=== PATIENT | female | born 1975 | race Caucasian/White ===

== ENCOUNTER → 2019-03-19 13:07 | Outpatient (CLI) | payer BC, SELFPAY ==
[2019-03-27 15:22] LABS: HPV Reflexed? NOT INDICATED
== END ==
PROVIDERS: PCP Family Medicine; Visit Provider Obstetrics & Gynecology
DX: Z12.4 Encounter for screening for malignant neoplasm of cervix (principal)
CPT/HCPCS: 88175; G0145

== ENCOUNTER → 2019-04-07 07:17 | Outpatient (CLI) | payer BC, SELFPAY ==
--- NOTE | 2019-04-07 07:26 | BI_ITS ---
MAMMOGRAPHY - BILATERAL SCREENING REASON FOR EXAM: Female, 44 years old. Routine annual screening examination. PERTINENT HISTORY: Non-contributory. History of bilateral breast implants. TECHNIQUE: Digital bilateral breast brent (3D mammographic acquisition) in the CC and MLO projections. 2-D mediolateral oblique (MLO) and craniocaudad (CC) views of both breasts were obtained. CAD: Full Field Digital Mammography with Computer Added Detection was performed. COMPARISON: Comparison is made with prior study dated September 30, 2017 and June 04, 2012. FINDINGS: Breast Composition: The breasts are heterogeneously dense, which may obscure small masses. There are no dominant masses or suspicious calcifications. Stable appearance of the bilateral breast implants. No other significant abnormalities are identified. There has been no significant change since the prior study. BI/SCREEN MAMM (CAD) W/BRENT BILAT IMPRESSION: Stable bilateral screening mammogram. Yearly follow-up mammogram recommended. (A) ASSESSMENT CATEGORY: BIRADS Category 2: Benign. A letter regarding these results will be sent to the patient by the facility within 30 days. Approximately 10% of breast cancers are not detected by mammography. A normal mammogram should not delay biopsy of a clinically suspicious abnormality. [id number] Electronically Signed: Naren Marinelli, at 9:24 EDT , Service support ,
== END ==
PROVIDERS: Family Provider Family Medicine; PCP Family Medicine; Referring Provider Obstetrics & Gynecology; Visit Provider Obstetrics & Gynecology
DX: Z12.31 Encounter for screening mammogram for malignant neoplasm of breast (principal)
CPT/HCPCS: 77063; 77067

== ENCOUNTER → 2020-03-16 07:51 | Outpatient (CLI) | payer BC, SELFPAY ==
[2020-03-16 10:23] LABS: Homocysteine 6.7 umol/L (3.2-10.7)
[2020-03-16 10:27] LABS: Absolute Lymphocyte Count 2.56 X10^3/uL (0.83-4.51); Absolute Neutrophil Count 5.1 X10^3/uL (2.0-7.7); Basophil# 0.03 X10^3/uL; Basophil% 0.4 % (0-1); Eosinophil# 0.18 X10^3/uL; Eosinophils% 2.1 % (0-5); Hematocrit 46.5 % (37-47); Hemoglobin 14.9 g/dL (12.0-15.0); Lymphocyte # 2.56 X10^3/ul (4.0); Lymphocyte % 30.2 % (19-41); Mean Corpuscular Hgb 31.3 pg (27.0-32.0); Mean Corpuscular Volume 97.7 fL (81-99); Mean Platelet Vol. 9.6 fl (6.2-12.0); Monocyte# 0.58 X10^3/uL; Monocyte% 6.8 % (0-10); NRBC Flagged by Analyzer 0 % (0-5); Neutrophil # 5.09 X10^3/uL (2.7-7.7); Neutrophil % 60.1 % (47-70); Platelet Count 191 K/mm3 (150-450); RBC Distribution Width CV 13.2 % (11.6-14.6); RBC Distribution Width SD 47.2 fl (35.1-43.9); Red Blood Count 4.76 M/mm3 (4.2-5.4); White Blood Count 8.5 K/mm3 (4.4-11.0)
[2020-03-16 10:41] LABS: Vitamin B12 319 pg/mL (211-911); Vitamin D,25 Hydroxy 68.6 ng/mL
[2020-03-16 11:00] LABS: Cholesterol 178 mg/dL (200); Ferritin 27 ng/mL (8-252); High Density Lipoprotein 68 mg/dL; Triglycerides 110 mg/dL; Very Low Density Lipoprotein 22 mg/dL (5-40)
== END ==
PROVIDERS: PCP Family Medicine; Referring Provider Family Medicine; Visit Provider Family Medicine
DX: E72.12 Methylenetetrahydrofolate reductase deficiency (principal); M25.50 Pain in unspecified joint; Z13.220 Encounter for screening for lipoid disorders
CPT/HCPCS: 36415; 80061; 82306; 82607; 82728; 82746; 83090; 85025

== ENCOUNTER 2020-10-28 09:11 | Outpatient (RCR) | payer BC, SELFPAY | END 2020-10-28 23:59 | LOC: IMMUN 09:11 | PROVIDERS: PCP Family Medicine; Referring Provider Family Medicine; Visit Provider Family Medicine | DX: Z23 Encounter for immunization (principal) | CPT/HCPCS: 0011A; 0012A ==

== ENCOUNTER → 2022-05-16 | Outpatient (CLI) | payer BC, SELFPAY ==
--- NOTE | 2022-05-16 14:42 | BI_ITS ---
MAMMOGRAPHY - BILATERAL DIAGNOSTIC REASON FOR EXAM: Female, 47 years old. Abnormal thermogram of the upper outer quadrant of the right breast. PERTINENT HISTORY: Non-contributory. Bilateral breast implants. TECHNIQUE: Digital bilateral breast sharon (3D mammographic acquisition) in the CC and MLO projections. 2-D mediolateral oblique (MLO) and craniocaudad (CC) views of both breasts were obtained. CAD: Full Field Digital Mammography with Computer Added Detection was performed. COMPARISON: Comparison is made with prior study dated 04/07/2019 and 09/30/2017. FINDINGS: Breast Composition: The breasts are heterogeneously dense, which may obscure small masses. There are no dominant masses or suspicious calcifications. Stable appearance of the bilateral breast implants. No other significant abnormalities are identified. There has been no significant change since the prior study. BI/DIAG MAMM W/CAD, BILAT IMPRESSION: Stable bilateral diagnostic mammogram. With the patient''s history of abnormal thermogram of the upper outer quadrant of the right breast, correlation with ultrasound is recommended. ASSESSMENT CATEGORY: BIRADS Category 0: Incomplete. Need additional imaging evaluation. A letter regarding these results will be sent to the patient by the facility within 30 days. Approximately 10% of breast cancers are not detected by mammography. A normal mammogram should not delay biopsy of a clinically suspicious abnormality. Electronically Signed: Naren Marinelli MD at 15:36 EDT ,
--- NOTE | 2022-05-16 15:06 | US_ITS ---
STUDY: ULTRASOUND BREAST - RIGHT REASON FOR EXAM: Female, 47 years old. Abnormal thermogram. TECHNIQUE: Axial and longitudinal images of the RIGHT breast were performed with a high resolution ultrasound transducer. # OF IMAGES: 29 COMPARISON: Comparison is made with prior mammogram done earlier today. FINDINGS: RIGHT Breast: The upper outer quadrant of the right breast was examined by ultrasound. No sonographic abnormality is seen. US/Breast Limited Unilateral IMPRESSION: No sonographic abnormality is seen. ASSESSMENT CATEGORY: BIRADS Category 1: Negative. A letter regarding these results will be sent to the patient by the facility within 30 days. Electronically Signed: Naren Marinelli MD at 15:37 EDT ,
== END | disposition home or self-care (01) ==
LOC: OPBI 14:29
PROVIDERS: PCP Family Medicine; Referring Provider Family Medicine; Visit Provider Family Medicine
DX: R92.8 Other abnormal and inconclusive findings on diagnostic imaging of breast (principal)
CPT/HCPCS: 76642; 77062; 77066; G0279

== ENCOUNTER → 2022-07-11 | Outpatient (CLI) | payer BC, SELFPAY ==
[2022-07-20 15:37] LABS: HPV APTIMA, High Risk Negative (Negative)
== END | disposition home or self-care (01) ==
LOC: LABSPEC 11:49
PROVIDERS: PCP Family Medicine; Visit Provider Obstetrics & Gynecology
DX: Z01.419 Encounter for gynecological examination (general) (routine) without abnormal findings (principal)
CPT/HCPCS: 87624; 88175; G0145

== ENCOUNTER 2023-11-05 09:30 | Outpatient (RCR) | payer BC, SELFPAY ==
--- NOTE | 2023-10-31 11:37 | HP.PTEVAL_ITS ---
Patient's Visit Information Visit Information Visit Information: ISACC GREEN is a 48 year old F referred to Physical Therapy by Dr. Edwin Aguilar MD with a diagnosis of CERVICALGIA, KEV NECK M. TENDERNESS AND POSTURE IMBALANCE. Date of Evaluation: 10/31/23 Physical Therapist: Erna Wong PT, Cert MDT Visit Plan Frequency: 2-3x /Week Duration: 4 Weeks Plan: Scapular Strengthening and B Pec/UT/Levator/Scalene Stretching to help reduce stress on Cervical Spine with Daily Activities. US at 1.3 W/CM2 100% to R Neck Musculature in Sitting. Moist Heat to Neck as needed. STM/Trigger Point Release to Kev Neck Musculature. Instruction in Proper Posture Control, Ergonomics with ADL's and Appropriate Activity Modifications. HEP Instructions. Consider Dry Needling. Subjective Subjective: Work/Leisure: UNEMPLOYEED Disability: NO Present symptoms: R NECK, SHOULDER AND SHLD BLADE PAIN AND TIGHTNESS. PAIN DOWN UPPER ARM TO ELBOW. NO SX'S IN FOREARM. CONSTANT NUMBNESS AND TINGLING IN THUMB, FIRST FINGER AND LITTLE FINGER. NO L NECK OR UE SX'S. Present since: APPROX 10/03/23 OR SOONER WORSENING OF CHRONIC NECK PAIN. NEW ONSET OF ARM SX'S IN THE LAST FEW WKS. Pain Scale: Worst - 5/10 Least - 1/10 Currently: 4/10 Commenced as a result of: NO APPARENT RASON. Symptoms at onset: R SHLD BLADE PAIN. Worse: LYING DOWN, SITTING, CARRYING HEAVING THINGS IN R ARM, TRYING TO LAY ON THE FLOOR ON HER BACK. Better: ON THE MOVE, BENDING BODY FORWARD AND DROPPING HEAD, SCRUNCHING UP ON COUCH WITH BODY AND NECK BENT, TENS WITH SOME BENEFIT, ALEVE Disturbed sleep: YES Previous history/Previous treatment: PATIENT REPORTS SHE CARRIES A LOT OF STRESS AND TENSION IN HER NECK AND SHOULDERS. LAST YEAR SHE MANAGED WELL WITH MASSAGE AND CHIROPRACTIC ON A MONTLY BASIS UNTIL A FEW WEEKS AGO. PRIOR TO 2022 SHE REPORTS HAVING A LOT OF NECK MUSCLE TENSION FOR ABOUT 25 YEARS. CHIROPRACTIC TREATMENTS INCLUDE STRETCHES AND NECK ADJUSTMENTS ALONG WITH MID BACK MANIPULATIONS. LATELY MASSAGE AND CHIROPRACTIC HAVE HAD NO EFFECT DESPITE INCREASED FREQUENCY OF VISITS. NO NECK SURGERY. NO NECK INJECTIONS. NO ACCUPUNCURE. Dizziness: NO Tinnitus: NO Nausea: NO Shortness of Breath: NO Difficulty Swollowing: NO Gait: INCREASED PAIN IN NECK AND R ARM WITH WALKING THE DOG IF LETS ARM HANG AND SWING SO HOLDING ARM UP TO BE MORE COMFORTABLE. REPORTS NORMAL FUNCTION OF LEGS. Accidents: NO Unexplained weight loss: NO Imaging: NONE PMH/Recent major surgery: UNREMARKABLE EXCEPT Raynaud's that seems to effect R not L hand historically and digits 2 and 3 only. Objective Objective: Sitting Posture/Standing Posture: MILD FH. RSH'S R>L. R SHLD LEVEL LOWER THAN L. NO TORTICOLLIS. Active Correction of posture: INCREASES R NECK PAIN, PRODUCES L NECK PAIN AND SLIGHTLY DECREASES R HAND SX'S. Other Observations: INDEP GAIT AND TRANSFERS WITH NO GROSS DEVIATIONS NOTED. Sensory deficit: KEV UE LIGHT TOUCH SENSATION GROSSLY INTACT AND SYMMETRICAL ROM deficit: KEV UE ROM WFL Motor deficit: KEV UE STRENGTH GROSSLY 5/5 EXCEPT SCAPULAR STRENGTH/STABILITY GRADED 4/5 KEV. PATIENT IS R HAND DOMINANT WITH A R DIRECTOR OF BUSINESS APPLICATIONS STRENGTH OF 59 LBS AND L 51 LBS. Reflex's: 2/3 Kev UE's. Dural Signs: POSITIVE KEV UE'S R >L. Cervical Mvmt Loss: Flex: MIN - DECREAES NECK PAIN THEN WITH CONTINUED MVMT INCREASES NECK PAIN. Pro: NIL - DECREASES NECK PAIN Ext: MOD - INCREASES CENTRAL NECK PAIN Ret: GOPI - INCREASES CENTRAL NECK PAIN. RSB: MOD - INCREAES R NECK AND SHLD BLADE PAIN LSB: MIN - DECREASES R NECK AND SHLD BLADE PAIN R Rot: MIN - NE L Rot: NIL - NE Postural strength: FAIR. Palpation: TENDERNESS WITH PALPATION OF KEV CERVICAL MUSCULATURE. 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 DEVELOPED TENNIS ELBOW R EARLY ON SO WENT LIGHT UPPER BODY. ONCE THAT GOT BETTER SHORTLY AFTER R NECK FLARED. TREATMENT: NEUROMUSCULAR REEDUCATION - RETRAINING OF MVMT AND POSTURE FOR SITTING, LYING AND STANDING ACTIVITIES. Balance/Special Test Scores Oswestry Neck Score: 11 Goals Goal 1:: DECREASE C/O NECK AND R UE SX'S BY AT LEAST 75% WITH ADL'S Goal Time Frame: 4-6 Weeks Goal 2:: PATIENT WILL HAVE INCREASED PAINFREE CERVICAL ROM WITHOUT TO EASE ADL'S Goal Time Frame: 4-6 Weeks Goal 3:: PATIENT WILL DEMONSTRATED GOOD POSTURAL STRENGTH AND FLEXIBLITY WITHOUT C/O INCREASED PAIN Goal Time Frame: 4-6 Weeks Goal 4:: PATIENT WILL BE INDEP WITH A HEP FOR CONTINUED IMPROVEMENT ONCE FORMAL PHYSICAL THERPAY CONCLUDES. Goal Time Frame: 4-6 Weeks Rehabilitation Potential Physical Therapy Diagnosis: THIS PATIENT PRESENTS TO PT WITH C/O KEV NECK PAIN R>L AND R UE SX'S LIMITING ADL'S. SHE HAS HYPOMOBILITY IN HER NECK ALONG WITH POSTURAL TIGHTNESS AND WEAKNESS. R HAND SX'S ARE CONSTANT AND KEV UE DURAL SIGNS ARE POSITIVE. Rehabilitation Potential: Fair Anticipated Interventions Patient/Client Instruction: Educate patient on: Condition, Plan of Care and Risk Factors For the Purpose of:: To improve self management Therapeutic Exercise to Include: Strength training, Body mechanics, Postural training, Flexibilty training, Neuromotor development, Relaxation training and Scapular Strength/Stabilization For the Purpose of:: To decrease pain, To increase ROM, To improve muscle performance and motor function, To increase tolerance to activity/condition/position, To improve ability of physical actions for home/community/work/leisure and To increase flexibility/ROM Manual Therapy Techniques to Include: Trigger point massage, Mobilization, Functional dry needling and Soft tissue mobilization For the Purpose of:: To decrease pain, To increase ROM and To improve nutrient delivery to tissue TENS: Yes IF ES: Yes Cryotherapy (ice pack, ice massage): Yes Thermo therapy (hot pack): Yes Ultrasound (thermal/non thermal): Yes Intermittent cervical traction: Yes For the Purpose of:: To decrease pain, To decrease swelling/inflammation, To increase ROM and To improve nutrient delivery to tissue Text: Thank you for the opportunity to evaluate your patient. For Medicare and Medicare HMO plans, please review the plan of care and approve it. It will need to be FAXED BACK to us at [phone] for Medicare purposes. For Medicare only, by signing this I certify the plan of care. Please let me know if there are questions or concerns regarding this plan of care. Physician Signature: Date:
--- NOTE | 2024-01-02 09:33 | HP.PT.NRP ---
Patient Information Patient Information: ISACC GREEN was seen in my office for initial evaluation on 10/31/23. The following Plan of Care was established for this patient: POC Established Initial Frequency: 2-3x /Week Initial Duration: 4 Weeks Anticipated Interventions Patient/Client Instruction: Educate patient on: Condition, Plan of Care and Risk Factors For the Purpose of:: To improve self management Therapeutic Exercise to Include: Strength training, Body mechanics, Postural training, Flexibilty training, Neuromotor development, Relaxation training and Scapular Strength/Stabilization For the Purpose of:: To decrease pain, To increase ROM, To improve muscle performance and motor function, To increase tolerance to activity/condition/position, To improve ability of physical actions for home/community/work/leisure and To increase flexibility/ROM Manual Therapy Techniques to Include: Trigger point massage, Mobilization, Functional dry needling and Soft tissue mobilization For the Purpose of:: To decrease pain, To increase ROM and To improve nutrient delivery to tissue TENS: Yes IF ES: Yes Cryotherapy (ice pack, ice massage): Yes Thermo therapy (hot pack): Yes Ultrasound (thermal/non thermal): Yes Intermittent cervical traction: Yes For the Purpose of:: To decrease pain, To decrease swelling/inflammation, To increase ROM and To improve nutrient delivery to tissue Last Seen Last Seen: This patient was last seen in our office 11/05/23. Pertinent comments regarding their Physical therapy will appear below: This patient has not returned for Physical Therapy and is appropriate to return to MD for further follow-up as needed. At this point I will be discontinuing this patient from physical therapy. I would be happy to see this patient again in the future if found appropriate by the physician. Thank you! Erna Wong, PT, Cert MDT Balance/Gait/Functional tests Balance/Special Test Scores Oswestry Neck Score: 11
== END 2023-11-05 19:00 | disposition home or self-care (01) ==
LOC: PT 09:30
PROVIDERS: PCP Family Medicine; Referring Provider Family Medicine; Visit Provider Family Medicine
DX: M54.2 Cervicalgia (principal); R29.3 Abnormal posture; M62.89 Other specified disorders of muscle
CPT/HCPCS: 97035; 97162; 97530